=== PATIENT | male | born 1995 | race Caucasian/White ===

== ENCOUNTER 2017-11-27 00:49 | Emergency (ER) | payer MEDICAID ==
[~2017-11-27] VITALS: Ht 182.9 cm; Wt 159.0 kg
[2017-11-27 01:05] VITALS: BP 149/85
== END 2017-11-27 01:38 | disposition home or self-care (01) ==
LOC: ER 00:50
DX: J22 Unspecified acute lower respiratory infection (principal)
CPT/HCPCS: 99281

== ENCOUNTER 2018-03-12 23:18 | Emergency (ER) | payer MEDICAID ==
[~2018-03-12] VITALS: Ht 190.5 cm; Wt 133.5 kg
[2018-03-13 00:39] VITALS: BP 126/74
[2018-03-13] MEDS ORDERED: acetaminophen 325mg tablet PO ONE (00:45)
== END 2018-03-13 01:06 | disposition home or self-care (01) ==
LOC: ER 23:18
DX: S06.0X0A Concussion without loss of consciousness, initial encounter (principal); S00.83XA Contusion of other part of head, initial encounter; W18.39XA Other fall on same level, initial encounter; Y93.89 Activity, other specified; Y92.89 Other specified places as the place of occurrence of the external cause; Y99.8 Other external cause status
CPT/HCPCS: 99283

== ENCOUNTER 2018-12-08 21:49 | Emergency (ER) | payer MEDICAID ==
[~2018-12-08] VITALS: Ht 182.9 cm; Wt 136.3 kg
[2018-12-08 22:18] LABS: BASOPHILS % (AUTO) 0.2 % (0-1); EOSINOPHILS # (AUTO) 0.1 X10'3 (0-0.9); EOSINOPHILS % (AUTO) 0.7 % (0-6); HEMATOCRIT 49.6 % (42.0-52.0); HEMOGLOBIN 17.2 g/dl (14.0-17.9); LYMPHOCYTES # (AUTO) 1.1 X10'3 (1.1-4.8); LYMPHOCYTES % (AUTO) 9.7 % (21-51); MEAN CORPUSCULAR HEMOGLOBIN 31.3 PG (27.0-31.0); MEAN CORPUSCULAR HGB CONC 34.7 g/dL (33.0-36.5); MEAN CORPUSCULAR VOLUME 90.3 FL (78-98); MEAN PLATELET VOLUME 7.1 FL (7.4-10.4); MONOCYTES # (AUTO) 0.4 X10'3 (0-0.9); MONOCYTES % (AUTO) 3.7 % (2-12); NEUTROPHILS # (AUTO) 10.2 X10'3 (1.8-7.7); NEUTROPHILS % (AUTO) 85.7 % (42-75); PLATELET COUNT 300 X10'3 (140-440); RED BLOOD COUNT 5.49 X10'6 (4.70-6.10); RED CELL DISTRIBUTION WIDTH 13.4 % (11.5-14.5); WHITE BLOOD COUNT 11.9 X10'3 (4.5-11.0)
[2018-12-08] MEDS ORDERED: LIDOcaine Viscous 15ml cup PO ONE (22:20)
[2018-12-08] MEDS ORDERED: pantoprazole 40mg Tablet.DR PO ONE (22:20)
[2018-12-08] MEDS ORDERED: famotidine 20mg tablet PO ONE (22:20)
[2018-12-08] MEDS ORDERED: mag hydrox/Alum hydrox/simeth 30ml oral suspension PO ONE (22:20)
[2018-12-08 22:33] LABS: ANION GAP 7 (8-16); BLOOD UREA NITROGEN 10 MG/DL (7-18); BUN/CREATININE RATIO 10.9 (5.4-32.0); CHLORIDE 103 MMOL/L (99-107); CREATININE 0.92 MG/DL (0.60-1.10); GLUCOSE 88 MG/DL (70-104); POTASSIUM 4.2 MMOL/L (3.5-5.1); SODIUM 140 MMOL/L (135-145); eGFR > 90 ML/MIN
[2018-12-08 22:34] LABS: ALANINE AMINOTRANSFERASE 45 U/L (12-78); ALBUMIN 4.1 G/DL (3.4-5.0); ALBUMIN/GLOBULIN RATIO 1.2 (1.1-1.5); ALKALINE PHOSPHATASE 58 IU/L (46-116); ASPARTATE AMINO TRANSFERASE 21 U/L (10-37); BILIRUBIN,TOTAL 0.6 MG/DL (0.1-1.0); LIPASE 164 U/L (73-393); TOTAL PROTEIN 7.4 G/DL (6.4-8.2)
[2018-12-08 23:20] LABS: CLARITY,URINE CLEAR (Clear); COLOR,URINE YELLOW (Yellow); GLUCOSE, URINE NEGATIVE (Neg); KETONES,URINE NEGATIVE (Neg); LEUKOCYTE ESTERASE ,URINE NEGATIVE (Neg); NITRITES, URINE NEGATIVE (Neg); OCCULT BLOOD,URINE NEGATIVE (Neg); PH,URINE 5.5 (4.8-8.0); PROTEIN,URINE NEGATIVE (Neg); UROBILINOGEN,URINE 0.2 E.U/dL (0.2-1.0)
[2018-12-08 23:26] LABS: UA COLLECTION TYPE CLN CATCH MIDSTREAM
[2018-12-09] MEDS ORDERED: ketorolac trometh. 30mg/ml inj. IV ONE
[2018-12-09] MEDS ORDERED: ondansetron/PF 4mg/2ml inj IV ONE
[2018-12-09] MEDS ORDERED: morphine 4 MG/ML inj SYRINge IV ONE
[2018-12-09 00:20] VITALS: BP 123/68
--- NOTE | 2018-12-09 00:26 | NUR ---
pt is polite and cooperative and appropriate. Mother at bedside and is also appropriate and supportive to pt. Pt just given IV: msiv 4 mg, toradol, 15 mg and zofran. Pt reports he does not want any imaging at this time.
[2018-12-09] MEDS ORDERED: PANT20TA3 PO (00:36)
[2018-12-09] MEDS ORDERED: HYDR-3965 PO (00:36)
[2018-12-09] MEDS ORDERED: ONDA8TAB6 PO (00:36)
[2018-12-09] MEDS ORDERED: MELO-100 PO (00:36)
== END 2018-12-09 01:08 | disposition home or self-care (01) ==
LOC: ER 21:49
DX: R10.13 Epigastric pain (principal); Z79.899 Other long term (current) drug therapy
CPT/HCPCS: 36415; 80053; 81003; 83690; 85025; 96374; 96375; 99284; J1885; J2270; J2405

== ENCOUNTER 2019-08-01 03:03 | Emergency (ER) | payer MEDICAID, OTHER ==
[~2019-08-01] VITALS: Ht 182.9 cm; Wt 136.4 kg
[~2019-08-01 03:03] MED LIST: MELO-100 PO; ONDA8TAB6 PO; PANT20TA3 PO
[2019-08-01 03:11] VITALS: BP 158/83
== END 2019-08-01 04:38 | disposition home or self-care (01) ==
LOC: ER 03:04
DX: S60.221A Contusion of right hand, initial encounter (principal); S60.511A Abrasion of right hand, initial encounter; W25.XXXA Contact with sharp glass, initial encounter; Y93.89 Activity, other specified; Y92.89 Other specified places as the place of occurrence of the external cause; Y99.8 Other external cause status
CPT/HCPCS: 73130; 99283

== ENCOUNTER 2020-01-07 21:49 | Emergency (ER) | payer SELFPAY ==
[~2020-01-07] VITALS: Ht 182.9 cm; Wt 127.3 kg
--- NOTE | 2020-01-07 23:19 | NUR ---
SHAILESH Gates at bedside.
[2020-01-07] MEDS ORDERED: HYDROcodone/acetaminophen 5mg/325mg tablet PO ONE (23:35)
[2020-01-07] MEDS ORDERED: CHLO473M3 PO (23:37)
[2020-01-07] MEDS ORDERED: PENI500T2 PO (23:37)
[2020-01-07] MEDS ORDERED: IBUP-1985 PO (23:37)
[2020-01-07 23:41] VITALS: BP 133/71
== END 2020-01-07 23:49 | disposition home or self-care (01) ==
LOC: ER 21:49
DX: K08.89 Other specified disorders of teeth and supporting structures (principal); F17.200 Nicotine dependence, unspecified, uncomplicated; Z79.899 Other long term (current) drug therapy
CPT/HCPCS: 99283

== ENCOUNTER 2020-01-29 13:15 | Emergency (ER) | payer SELFPAY ==
[~2020-01-29] VITALS: Ht 182.9 cm; Wt 127.3 kg
[~2020-01-29 13:15] MED LIST changes: +CHLO473M3 PO; +IBUP-1985 PO; +PENI500T2 PO
[2020-01-29 13:16] VITALS: BP 147/63
== END 2020-01-29 14:07 | disposition home or self-care (01) ==
LOC: ER 13:15
DX: R50.9 Fever, unspecified (principal); Z79.899 Other long term (current) drug therapy
CPT/HCPCS: 99281

== ENCOUNTER 2020-04-24 21:23 | Emergency (ER) | payer MEDICAID, OTHER ==
[~2020-04-24] VITALS: Ht 182.9 cm; Wt 136.4 kg
[~2020-04-24 21:23] MED LIST changes: -PENI500T2 PO
[2020-04-24 21:32] VITALS: BP 128/83
[2020-04-24] MEDS ORDERED: orphenadrine citrate 60mg/2ml inj. IM ONE (22:25)
[2020-04-24] MEDS ORDERED: ketorolac tromethamine 15mg/ml inj. IM ONE (22:25)
[2020-04-24] MEDS ORDERED: METH-360 PO (23:03)
== END 2020-04-24 23:23 | disposition home or self-care (01) ==
LOC: ER 21:24
DX: M54.5 Low back pain (principal); Z79.899 Other long term (current) drug therapy
CPT/HCPCS: 96372; 99284; J1885; J2360

== ENCOUNTER 2020-05-08 01:03 | Emergency (ER) | payer MEDICAID, OTHER ==
[~2020-05-08] VITALS: Ht 182.9 cm; Wt 127.3 kg
[~2020-05-08 01:03] MED LIST changes: +METH-360 PO
[2020-05-08 01:06] VITALS: BP 155/82
[2020-05-08] MEDS ORDERED: naproxen 500mg tablet PO ONE (02:25)
[2020-05-08] MEDS ORDERED: amox tr/potassium clavulanate 875/125mg TAB PO ONE (02:25)
[2020-05-08] MEDS ORDERED: AMOX-422 PO (02:31)
[2020-05-08] MEDS ORDERED: NAPR-56 PO (02:31)
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
== END 2020-05-08 02:54 | disposition home or self-care (01) ==
LOC: ER 01:03
DX: K04.7 Periapical abscess without sinus (principal); K08.89 Other specified disorders of teeth and supporting structures; L03.211 Cellulitis of face; Z79.2 Long term (current) use of antibiotics; Z79.899 Other long term (current) drug therapy
CPT/HCPCS: 99283

== ENCOUNTER 2021-01-01 00:23 | Emergency (ER) | payer MEDICAID, OTHER ==
[~2021-01-01] VITALS: Ht 182.9 cm; Wt 136.0 kg
[~2021-01-01 00:23] MED LIST changes: +PANT20TA18 PO; -PANT20TA3 PO
[2021-01-01 00:28] VITALS: BP 142/92
[2021-01-01] MEDS ORDERED: ALBU8HFA PO (00:37)
[2021-01-01] MEDS ORDERED: BENZ-16 PO (00:37)
== END 2021-01-01 00:55 | disposition home or self-care (01) ==
LOC: ER 00:24
DX: J20.9 Acute bronchitis, unspecified (principal); Z20.822 Contact with and (suspected) exposure to COVID-19; F17.200 Nicotine dependence, unspecified, uncomplicated; Z79.899 Other long term (current) drug therapy
CPT/HCPCS: 36415; 87635; 99283

== ENCOUNTER 2021-04-08 14:45 | Emergency (ER) | payer MEDICAID ==
[~2021-04-08] VITALS: Ht 182.9 cm; Wt 150.8 kg
[2021-04-08 15:03] VITALS: BP 126/71
[2021-04-08] MEDS ORDERED: ketorolac trometh. 30mg/ml inj. IM ONE (16:20)
[2021-04-08] MEDS ORDERED: cyclobenzaprine 10mg tablet PO ONE (16:20)
[2021-04-08] MEDS ORDERED: CYCL-1 PO (16:22)
[2021-04-08] MEDS ORDERED: METH4TAB81 PO (16:22)
== END 2021-04-08 16:53 | disposition home or self-care (01) ==
LOC: ER 14:46
DX: S39.012A Strain of muscle, fascia and tendon of lower back, initial encounter (principal); Z79.899 Other long term (current) drug therapy; X58.XXXA Exposure to other specified factors, initial encounter; Y93.89 Activity, other specified; Y92.89 Other specified places as the place of occurrence of the external cause; Y99.8 Other external cause status
CPT/HCPCS: 96372; 99283; J1885

== ENCOUNTER 2021-11-22 01:50 | Emergency (ER) | payer MEDICAID ==
[~2021-11-22] VITALS: Ht 182.9 cm; Wt 135.0 kg
[~2021-11-22 01:50] MED LIST changes: +CYCL-1 PO; +METH4TAB81 PO
--- NOTE | 2021-11-22 04:33 | NUR ---
PATIENT TREATED AND RELEASED BY MD. PARADA POSITIVE. NO DISTRESS. PATIENT EXHIBITED UNDERSTANDING OF DISCH INST.
[2021-11-22 04:35] VITALS: BP 127/78
== END 2021-11-22 04:40 | disposition home or self-care (01) ==
LOC: ER 01:50
DX: U07.1 COVID-19 (principal); R05.9 Cough, unspecified; Z79.899 Other long term (current) drug therapy
CPT/HCPCS: 87635; 99283; C9803

== ENCOUNTER 2021-12-08 13:34 | Emergency (ER) | payer MEDICAID ==
[~2021-12-08] VITALS: Ht 182.9 cm; Wt 127.0 kg
[2021-12-08 13:53] VITALS: BP 119/77
[2021-12-08] MEDS ORDERED: PENI500T2 PO (14:15)
== END 2021-12-08 14:24 | disposition home or self-care (01) ==
LOC: ER 13:34
DX: K08.89 Other specified disorders of teeth and supporting structures (principal); Z79.899 Other long term (current) drug therapy
CPT/HCPCS: 99283

== ENCOUNTER 2021-12-09 18:36 | Emergency (ER) | payer MEDICAID ==
[~2021-12-09] VITALS: Ht 182.9 cm; Wt 127.3 kg
[~2021-12-09 18:36] MED LIST changes: +PENI500T2 PO
[2021-12-09 20:36] VITALS: BP 142/78
== END 2021-12-09 21:38 | disposition left against medical advice (07) ==
LOC: ER 18:37
DX: M54.6 Pain in thoracic spine (principal); K08.89 Other specified disorders of teeth and supporting structures; Z53.21 Procedure and treatment not carried out due to patient leaving prior to being seen by health care provider

== ENCOUNTER 2022-01-25 08:35 | Emergency (ER) | payer MEDICAID ==
[~2022-01-25] VITALS: Ht 182.9 cm; Wt 127.3 kg
[~2022-01-25 08:35] MED LIST changes: -PENI500T2 PO
[2022-01-25] MEDS ORDERED: ondansetron 4mg rapidly disintigrating tab PO ONE (08:50)
[2022-01-25] MEDS ORDERED: ondansetron/PF 4mg/2ml inj IV ONE (09:20)
[2022-01-25] MEDS ORDERED: morphine 4 MG/ML inj SYRINge IV ONE (09:20)
[2022-01-25] MEDS ORDERED: normal saline 1000ML IV soln IVB ONE ×2 (09:20→10:00)
[2022-01-25 09:30] LABS: BASOPHILS % (AUTO) 0.6 % (0-1); EOSINOPHILS % (AUTO) 0.2 % (0-6); HEMATOCRIT 46.1 % (42.0-52.0); HEMOGLOBIN 15.6 g/dl (14.0-17.9); LYMPHOCYTES # (AUTO) 0.8 X10'3 (1.1-4.8); MEAN CORPUSCULAR HEMOGLOBIN 30.5 PG (27.0-31.0); MEAN CORPUSCULAR HGB CONC 33.8 g/dL (33.0-36.5); MEAN CORPUSCULAR VOLUME 90.3 FL (78-98); MEAN PLATELET VOLUME 7.1 FL (7.4-10.4); MONOCYTES # (AUTO) 0.3 X10'3 (0-0.9); MONOCYTES % (AUTO) 8.5 % (2-12); NEUTROPHILS # (AUTO) 2.6 X10'3 (1.8-7.7); NEUTROPHILS % (AUTO) 69.7 % (42-75); PLATELET COUNT 219 X10'3 (140-440); RED BLOOD COUNT 5.11 X10'6 (4.70-6.10); RED CELL DISTRIBUTION WIDTH 13.8 % (11.5-14.5); WHITE BLOOD COUNT 3.7 X10'3 (4.5-11.0)
[2022-01-25 09:46] LABS: ALANINE AMINOTRANSFERASE 80 U/L (12-78); ALBUMIN 3.7 G/DL (3.4-5.0); ALKALINE PHOSPHATASE 33 IU/L (46-116); ASPARTATE AMINO TRANSFERASE 34 U/L (10-37); BLOOD UREA NITROGEN 13 MG/DL (7-18); BUN/CREATININE RATIO 10.7 (5.4-32.0); CALCIUM 8.6 MG/DL (8.5-10.1); CHLORIDE 98 MMOL/L (99-107); CREATININE 1.21 MG/DL (0.60-1.10); GLUCOSE 83 MG/DL (70-104); POTASSIUM 4.3 MMOL/L (3.5-5.1); SODIUM 138 MMOL/L (135-145); TOTAL PROTEIN 7.4 G/DL (6.4-8.2); eGFR 74 ML/MIN
[2022-01-25 09:50] LABS: ANION GAP 15 (8-16); BILIRUBIN,TOTAL 0.5 MG/DL (0.1-1.0); TOTAL CARBON DIOXIDE 25.1 MMOL/L (24-32)
[2022-01-25] MEDS ORDERED: dexamethasone 4mg tablet PO STA (09:59)
[2022-01-25] MEDS ORDERED: albuterol 2.5 MG/3 ML nebule NEB ONE (10:00)
[2022-01-25] MEDS ORDERED: ONDA8TAB13 PO (10:02)
--- NOTE | 2022-01-25 11:00 | NUR ---
per RT, pt o2 was 86% pre-treatment. post tx, 02 noted to be 88%. placed on 2L NC, o2 now 96%. will inform .
[2022-01-25 11:09] VITALS: BP 111/65
--- NOTE | 2022-01-25 11:25 | NUR ---
o2 removed, pt remains 94-96%. aware.
== END 2022-01-25 12:04 | disposition home or self-care (01) ==
LOC: ER 08:36
DX: J06.9 Acute upper respiratory infection, unspecified (principal); R11.2 Nausea with vomiting, unspecified; R05.9 Cough, unspecified; R50.9 Fever, unspecified; F17.200 Nicotine dependence, unspecified, uncomplicated; Z79.899 Other long term (current) drug therapy
CPT/HCPCS: 36415; 71045; 80053; 85025; 94640; 96360; 99284; J7030; 94760

== ENCOUNTER 2022-09-05 17:44 | Emergency (ER) | payer MEDICAID ==
[~2022-09-05] VITALS: Ht 182.9 cm; Wt 130.0 kg
[~2022-09-05 17:44] MED LIST changes: +ONDA8TAB13 PO
[2022-09-05] MEDS ORDERED: ketorolac trometh inj. 60 MG/2 ML VIAL IM ONE (18:35)
[2022-09-05 18:40] LABS: BASOPHILS # (AUTO) 0.1 X10'3 (0-0.2); BASOPHILS % (AUTO) 0.7 % (0-1); EOSINOPHILS # (AUTO) 0.2 X10'3 (0-0.9); EOSINOPHILS % (AUTO) 1.8 % (0-6); HEMATOCRIT 46.7 % (42.0-52.0); HEMOGLOBIN 16.4 g/dl (14.0-17.9); LYMPHOCYTES # (AUTO) 2.3 X10'3 (1.1-4.8); LYMPHOCYTES % (AUTO) 22.4 % (21-51); MEAN CORPUSCULAR HEMOGLOBIN 31.7 PG (27.0-31.0); MEAN CORPUSCULAR HGB CONC 35.2 g/dL (33.0-36.5); MEAN CORPUSCULAR VOLUME 90.1 FL (78-98); MEAN PLATELET VOLUME 6.6 FL (7.4-10.4); MONOCYTES # (AUTO) 0.6 X10'3 (0-0.9); MONOCYTES % (AUTO) 5.6 % (2-12); NEUTROPHILS # (AUTO) 7.1 X10'3 (1.8-7.7); NEUTROPHILS % (AUTO) 69.5 % (42-75); PLATELET COUNT 338 X10'3 (140-440); RED BLOOD COUNT 5.19 X10'6 (4.70-6.10); RED CELL DISTRIBUTION WIDTH 13.5 % (11.5-14.5); WHITE BLOOD COUNT 10.2 X10'3 (4.5-11.0)
[2022-09-05 18:58] LABS: ALANINE AMINOTRANSFERASE 68 U/L (12-78); ALBUMIN 4.2 G/DL (3.4-5.0); ALBUMIN/GLOBULIN RATIO 1.2 (1.1-1.5); ALKALINE PHOSPHATASE 48 IU/L (46-116); ANION GAP 7 (8-16); ASPARTATE AMINO TRANSFERASE 25 U/L (10-37); BILIRUBIN,TOTAL 0.4 MG/DL (0.1-1.0); BLOOD UREA NITROGEN 13 MG/DL (7-18); BUN/CREATININE RATIO 11.9 (5.4-32.0); CALCIUM 9.3 MG/DL (8.5-10.1); CHLORIDE 101 MMOL/L (99-107); CREATININE 1.09 MG/DL (0.60-1.10); GLUCOSE 118 MG/DL (70-104); LIPASE 142 U/L (73-393); POTASSIUM 3.6 MMOL/L (3.5-5.1); SODIUM 139 MMOL/L (135-145); TOTAL CARBON DIOXIDE 30.9 MMOL/L (24-32); TOTAL PROTEIN 7.6 G/DL (6.4-8.2); eGFR 83 ML/MIN
[2022-09-05 19:20] LABS: CLARITY,URINE CLEAR (Clear); COLOR,URINE YELLOW (Yellow); GLUCOSE, URINE NEGATIVE (Neg); KETONES,URINE NEGATIVE (Neg); LEUKOCYTE ESTERASE ,URINE TRACE (Neg); NITRITES, URINE NEGATIVE (Neg); OCCULT BLOOD,URINE NEGATIVE (Neg); PH,URINE 5.5 (4.8-8.0); PROTEIN,URINE NEGATIVE (Neg); UROBILINOGEN,URINE 0.2 E.U/dL (0.2-1.0)
[2022-09-05 19:25] LABS: UA COLLECTION TYPE CLN CATCH MIDSTREAM
[2022-09-05 19:26] LABS: HYALINE CASTS 0-3 /LPF (NEGATIVE); MUCUS STRANDS FEW /LPF (Neg); SQUAMOUS EPITHELIAL CELL,UR MODERATE /LPF (FEW)
[2022-09-05 19:27] LABS: WBC CLUMPS,URINE FEW /HPF (NEGATIVE); WBC,URINE 30-50 /HPF (0-4)
[2022-09-05 19:28] LABS: BACTERIA,URINE FEW /HPF (Neg)
[2022-09-05] MEDS ORDERED: amox tr/potassium clavulanate 875/125mg TAB PO ONE (20:00)
[2022-09-05] MEDS ORDERED: AMOX-580 PO (20:00)
[2022-09-05 20:12] VITALS: BP 136/90
== END 2022-09-05 20:13 | disposition home or self-care (01) ==
LOC: ER 17:45
DX: N39.0 Urinary tract infection, site not specified (principal); J20.9 Acute bronchitis, unspecified; Z20.822 Contact with and (suspected) exposure to COVID-19; R10.9 Unspecified abdominal pain
CPT/HCPCS: 36415; 71045; 80053; 81001; 83690; 85025; 87088; 87502; 87503; 87635; 96372; 99284; C9803; J1885

== ENCOUNTER 2023-01-04 09:34 | Emergency (ER) | payer MEDICAID ==
[~2023-01-04] VITALS: Ht 182.9 cm; Wt 127.3 kg
[2023-01-04 09:37] VITALS: BP 150/92
[2023-01-04] MEDS ORDERED: ibuprofen 200mg tablet PO ONE (10:35)
== END 2023-01-04 11:08 | disposition home or self-care (01) ==
LOC: ER 09:34
DX: M25.562 Pain in left knee (principal); M25.572 Pain in left ankle and joints of left foot
CPT/HCPCS: 29515; 73564; 99283; A6449; L1930

== ENCOUNTER 2023-08-21 02:17 | Emergency (ER) | payer MEDICAID ==
[~2023-08-21] VITALS: Ht 182.9 cm; Wt 113.6 kg
[2023-08-21 02:29] VITALS: BP 114/87; PULSE 83; RESP 20; TEMP 98.1; O2SAT 94
--- NOTE | 2023-08-21 03:10 | NUR ---
radiology asked me where pt was: pt not in lobby nor outside.
== END 2023-08-21 05:05 | disposition left against medical advice (07) ==
LOC: ER 02:18
DX: M25.572 Pain in left ankle and joints of left foot (principal); Z53.21 Procedure and treatment not carried out due to patient leaving prior to being seen by health care provider
CPT/HCPCS: 99281

== ENCOUNTER 2023-10-16 22:57 | Emergency (ER) | payer MEDICAID ==
[~2023-10-16] VITALS: Ht 182.9 cm; Wt 136.0 kg
[2023-10-16 22:59] VITALS: BP 158/86; PULSE 93; RESP 17; TEMP 97.3; O2SAT 99
[2023-10-17] MEDS ORDERED: ibuprofen tablet 400 MG TABLET PO ONE
== END 2023-10-17 00:19 | disposition home or self-care (01) ==
LOC: ER 22:57
DX: M94.0 Chondrocostal junction syndrome [Tietze] (principal); R07.81 Pleurodynia; R07.89 Other chest pain; J06.9 Acute upper respiratory infection, unspecified; Z79.899 Other long term (current) drug therapy
CPT/HCPCS: 71101; 99283; 99284

== ENCOUNTER 2024-08-11 18:47 | Emergency (ER) | payer MEDICAID ==
[~2024-08-11] VITALS: Ht 182.9 cm; Wt 166.5 kg
[~2024-08-11 18:47] MED LIST changes: +CHLO473M13 PO; -CHLO473M3 PO; +ONDA-245 PO; -ONDA8TAB13 PO
[2024-08-11 18:51] VITALS: BP 140/75; PULSE 102; TEMP 98.2; O2SAT 96
[2024-08-11] MEDS ORDERED: PSEU120T56 PO (19:37)
[2024-08-11] MEDS ORDERED: FLUT16SP2 BOTHNARES (19:37)
[2024-08-11 19:46] VITALS: RESP 20
[2024-08-12] MEDS ORDERED: CIPR7.5D7 LEFT EAR (13:23)
== END 2024-08-11 19:47 | disposition home or self-care (01) ==
LOC: ER 18:47
DX: H69.92 Unspecified Eustachian tube disorder, left ear (principal); H91.92 Unspecified hearing loss, left ear; Z79.899 Other long term (current) drug therapy; Z79.1 Long term (current) use of non-steroidal anti-inflammatories (NSAID); Z79.2 Long term (current) use of antibiotics
CPT/HCPCS: 99282

== ENCOUNTER 2024-08-12 12:49 | Emergency (ER) | payer MEDICAID ==
[~2024-08-12] VITALS: Ht 182.9 cm; Wt 167.5 kg
[~2024-08-12 12:49] MED LIST changes: +FLUT16SP2 BOTHNARES; +PSEU120T56 PO
[2024-08-12 12:54] VITALS: BP 135/90; PULSE 94; RESP 18; TEMP 96.1; O2SAT 98
[2024-08-12] MEDS ORDERED: CIPR7.5D7 LEFT EAR (13:23)
== END 2024-08-12 13:32 | disposition home or self-care (01) ==
LOC: ER 12:50
DX: H72.92 Unspecified perforation of tympanic membrane, left ear (principal); Z88.6 Allergy status to analgesic agent; Z88.8 Allergy status to other drugs, medicaments and biological substances
CPT/HCPCS: 99283

== ENCOUNTER 2024-10-14 20:25 | Emergency (ER) | payer MEDICAID ==
[~2024-10-14] VITALS: Ht 182.9 cm; Wt 159.1 kg
[~2024-10-14 20:25] MED LIST changes: +CIPR7.5D7 LEFT EAR
[2024-10-14 20:34] VITALS: BP 155/84; PULSE 101; O2SAT 98
[2024-10-14 21:48] VITALS: RESP 20
[2024-10-14] MEDS ORDERED: AZIT-164 PO (22:25)
[2024-10-14] MEDS ORDERED: AMOX-419 PO (22:25)
[2024-10-14 22:35] VITALS: TEMP 98.7
[2024-10-14] MEDS: amox tr/potassium clavulanate 500mg/125mg TAB PO ONE (22:47)
== END 2024-10-14 22:50 | disposition home or self-care (01) ==
LOC: ER 20:26
DX: J22 Unspecified acute lower respiratory infection (principal); Z79.899 Other long term (current) drug therapy
CPT/HCPCS: 99283

== ENCOUNTER 2024-11-28 17:57 | Emergency (ER) | payer MEDICAID ==
[~2024-11-28] VITALS: Ht 182.9 cm; Wt 154.0 kg
[2024-11-28] MEDS ORDERED: PRED20TA PO (21:03)
[2024-11-28] MEDS ORDERED: PROM25TA14 PO (21:03)
[2024-11-28 21:14] VITALS: BP 132/80; PULSE 70; RESP 16; TEMP 98.6; O2SAT 99
== END 2024-11-28 21:16 | disposition home or self-care (01) ==
LOC: ER 17:58
DX: U07.1 COVID-19 (principal)
CPT/HCPCS: 36415; 71045; 87502; 87503; 87811; 99284

== ENCOUNTER 2025-05-01 19:48 | Emergency (ER) | payer MEDICAID ==
[~2025-05-01] VITALS: Ht 182.9 cm; Wt 171.4 kg
--- NOTE | 2025-05-01 21:21 | Physician Documentation ---
History of Present Illness ~ Chief Complaint: Facial Swelling Stated Complaint: SWOLLEN LIP Time Seen by MD: 21:05 Primary Medical Doctor: NO PMD HPI This is a 29-year-old male who presents with pain and swelling to his upper lip with white patches on the area worsening over the last two days, patient reports no fever. Tetanus Within 5 Years: No Medication Reconciliation Allergies: Coded Allergies: No Known Allergies (Unverified , 08/12/24) Scheduled Chlorhexidine Gluconate (Periogard), 15 ML PO Q12H Ciprofloxacin HCl/Dexameth (Ciproflox-Dexameth Otic Susp), 4 DROP LEFT EAR BID Cyclobenzaprine* (Cyclobenzaprine*), 1 TAB PO Q8H Fluticasone Propionate (Flonase), 2 SPRAYS BOTHNARES DAILY Ibuprofen (Ibuprofen), 1 TAB PO Q8H Meloxicam* (Meloxicam*), 1 TAB PO DAILY Methocarbamol (Robaxin-750), 1 TAB PO Q12H Methylprednisolone (Medrol Dosepak), 1 PACKET PO UD Ondansetron Hcl (Zofran), 1 TAB PO Q8H Pantoprazole Sodium (Protonix), 1 TAB PO DAILY Pseudoephedrine HCl (Sudafed 12 Hour), 1 TAB PO Q12H Sulfamethoxazole/Trimethoprim (Bactrim Ds Tablet), 1 TAB PO Q12H Scheduled PRN Ondansetron 8mg ODT (Ondansetron Odt), 1 TAB PO Q6H PRN for nausea/vomiting Past Medical History Past Medical History: No Pertinent History Past Surgical History: no surgical history Alcohol Use: None Drug Use: none Lives with: Family Lives In: Home Review of Systems ROS Pain and swelling to upper lip as stated above in the HPI, otherwise all systems are reviewed and negative. Physical Exam Vital Signs: Temperature: 98.9, Source: Temporal, Heart Rate: 101, Respiratory Rate: 16, BP: 150/87, Pulse Oximetry: 97, Weight: 171.450 Oxygen Flow Rate: 0 Physical Exam VITALS: Reviewed and as above. GENERAL: Alert, nontoxic appearing, no apparent distress. HEENT: Erythema and mild swelling to upper lip with white patches and honey- crusted lesions, no fluctuance, tender to palpation, no submandibular swelling, no tongue elevation RESPIRATORY: No increased work of breathing, no respiratory distress, speaking in full clear sentences Progress Results/Orders Results/Orders Completed Orders - MANUEL GREENBERG DIRECTOR OF CONSERVATION Sulfamethox/Trimetho. Ds Tab ( Ds (05/01/25 21:30) Medications Received in ER Medications (Trade) Dose Ordered Sig/Je Route PRN Reason Start Time Stop Time Status Last Admin Dose Admin ( DS tab) 1 tab ONCE ONCE PO 05/01/25 21:30 05/01/25 21:31 DC 05/01/25 21:41 1 TAB Vital Signs 05/01/25 05/01/25 19:55 21:42 Temp 98.9 98.6 Pulse 101 99 Resp 16 18 B/P (MAP) 150/87 145/82 Pulse Ox 97 99 O2 Flow Rate 0 Medical Decision Making Findings This 29-year-old male presented with two days of pain and swelling to his upper lip, it was reassuring that the swelling was localized and not obscure the airway or the patient's ability to maintain oral hydration and nutrition. Appears to be purulent cellulitis of the lip, no evidence of abscess requiring drainage. Patient is otherwise well-appearing and remainder of physical exam benign. History is reassuring as patient reports no fever, chills, or other systemic symptoms. There is no evidence of rapidly progressing symptoms, crepitus, pain out of proportion, pain away from site or other signs/symptoms concerning for necrotizing fasciitis, myositis, or other deep tissue infection. Patient is appropriate for outpatient follow up. Patient given strict return precautions including rapidly progressing symptoms, pain out of proportion/severe pain, mucosal involvement, and/or fever > 100.4. Differential Dx:Considerations: Include: Abrasion, Other (Abscess, herpes simplex, impetigo) Departure Time of Disposition: 21:26 Disposition: HOME / SELF CARE / HOMELESS Impression: Primary Impression: Cellulitis Qualified Codes: L03.211 - Cellulitis of face Condition: Improved Additional Instructions: Please take antibiotics as prescribed. This is likely bacterial infection in would be considered contagious. Please follow up with your primary care provider in the next few days for a recheck of the area to ensure that it is decreasing in size. Please return to the emergency department for any new or worsening concerning symptoms including but not limited to increasing pain and swelling to the area or if you develop a fever. Referrals: NO PRIMARY CARE PROVIDER (PCP) Prescriptions Sulfamethoxazole/Trimethoprim (Bactrim Ds Tablet) 800 Mg-160 Mg Tablet 1 TAB PO Q12H for 10 Days, #20 TAB Prov: MANUEL GREENBERG 05/01/25 Education Educated: Patient Educated regarding: diagnosis, treatment, prognosis, need for follow up Signature Scribe Signature: No scribe Attestation: The note accurately reflects work and decisions made by me.ARNOLD Bruce 05/02/25 01:55 MANUEL GREENBERGP May 01, 2025 21:21
[2025-05-01] MEDS ORDERED: SULF1TAB49 PO (21:26)
[2025-05-01] MEDS: sulfamethoxazole/trimethoprim DS (800/160mg) tablet PO ONE (21:41)
[2025-05-01 21:42] VITALS: BP 145/82; PULSE 99; RESP 18; TEMP 98.6; O2SAT 99
== END 2025-05-01 21:43 | disposition home or self-care (01) ==
LOC: ER 19:48
DX: L03.211 Cellulitis of face (principal); Z79.899 Other long term (current) drug therapy
CPT/HCPCS: 99283

== ENCOUNTER 2025-09-01 14:54 | Emergency (ER) | payer MEDICAID ==
[~2025-09-01] VITALS: Ht 182.9 cm; Wt 170.6 kg
[~2025-09-01 14:54] MED LIST changes: -IBUP-1985 PO; +IBUP600T52 PO
[2025-09-01 15:16] VITALS: BP 144/104; PULSE 102; TEMP 97.4; O2SAT 96
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
[2025-09-01 15:44] VITALS: RESP 16
[2025-09-01] MEDS: ketorolac trometh 15mg/ml vial 15 MG/ML ML IM ONE (15:44)
--- NOTE | 2025-09-01 15:48 | RADIOLOGY REPORT ---
CLINICAL HISTORY: Low back pain TECHNIQUE: 2 views of the lumbar spine were obtained. COMPARISON: None FINDINGS: The alignment of the lumbar spine is normal. The vertebral body heights and intervertebral disc spaces are well maintained. No acute fracture or dislocation is seen. IMPRESSION: NO ACUTE RADIOGRAPHIC ABNORMALITY OF THE LUMBAR SPINE.
[2025-09-01] MEDS ORDERED: CYCL-1 PO (15:55)
[2025-09-01] MEDS ORDERED: LIDO-52 TOP (15:55)
[2025-09-01] MEDS ORDERED: IBUP-1986 PO (15:55)
== END 2025-09-01 16:03 | disposition home or self-care (01) ==
LOC: ER 14:54
DX: M54.50 Low back pain, unspecified (principal)
CPT/HCPCS: 72100; 96372; 99283; J1885